=== PATIENT | female | born 1995 | race Caucasian/White ===

== ENCOUNTER 2018-09-08 15:15 | Emergency (ER) | payer OTHER ==
[2018-09-08] MEDS ORDERED: Ketorolac 60 MG/2 ML SDV IM ONE (15:30)
--- NOTE | 2018-09-08 15:38 | EDM.PDOC ---
ED HPI GENERAL MEDICAL PROBLEM - General Chief Complaint: Back Pain or Injury Stated Complaint: back pain Time Seen by Provider: 09/08/18 15:26 Source of Information: Reports: Patient, EMS History Limitations: Reports: No Limitations - History of Present Illness INITIAL COMMENTS - FREE TEXT/NARRATIVE: States that she had walked outside with a cat in her arms and she slipped on the slippery steps and fell down onto her buttocks and back. She was able to get up and go into house but had pain in back. She states that she heard a pop when she fell. Pain is in the lumbar and right side. SHe denies any radiation of the pain down legs or up into back. She states that the pain became worse and she was not able to get out of chair due to pain and called ambulance for transfer. Onset: Sudden Location: Reports: Back Quality: Reports: Sharp Improves with: Reports: Rest Worsens with: Reports: Movement Associated Symptoms: Reports: No Other Symptoms Back Pain Score (Numeric/FACES): 7 - Related Data Allergies Allergy/AdvReac Type Severity Reaction Status Date / Time blueberry Allergy Difficulty Verified 09/08/18 15:24 Breathing Penicillins Allergy Other Verified 09/08/18 15:24 Home Meds: Home Meds . [No Known Home Meds] 09/08/18 [History] Past Medical History - Past Health History Medical/Surgical History: Denies Medical/Surgical History Social & Family History - Tobacco Use Smoking Status *Q: Current Every Day Smoker Years of Tobacco use: 7 Packs/Tins Daily: 0.5 - Living Situation & Occupation Living situation: Reports: Single, with Significant Other Occupation: Employed ED ROS GENERAL - Review of Systems Review Of Systems: See Below Constitutional: Reports: No Symptoms HEENT: Reports: No Symptoms Respiratory: Reports: No Symptoms Cardiovascular: Reports: No Symptoms GI/Abdominal: Reports: No Symptoms : Reports: No Symptoms Musculoskeletal: Reports: Back Pain Skin: Reports: No Symptoms Neurological: Reports: No Symptoms ED EXAM,LOWER BACK PAIN/INJURY - Physical Exam Exam: See Below Exam Limited By: No Limitations General Appearance: Alert, WD/WN, Moderate Distress Ears: Normal External Exam, Normal Canal, Normal TMs Nose: Normal Inspection Throat/Mouth: Normal Inspection, Normal Oropharynx Head: Atraumatic, Normocephalic Neck: Normal Inspection, Supple, Non-Tender, Full Range of Motion Respiratory/Chest: No Respiratory Distress, Lungs Clear, Normal Breath Sounds Cardiovascular: Normal Peripheral Pulses, Regular Rate, Rhythm, No Edema GI/Abdominal: Normal Bowel Sounds, Soft, Non-Tender Back Exam: Normal Inspection (No bruising noted.), Paraspinal Tenderness (right lumbar area is very tender with palpation. Not tender down the spine itself.) Extremities: Normal Inspection, Non-Tender, No Pedal Edema, Normal Capillary Refill Neurological: Alert, Oriented x 3 Skin Exam: Warm, Dry, Intact, Normal Color. No: Ecchymosis Course - Vital Signs Last Recorded V/S: Last Vital Signs Temp 98.4 F 09/08/18 15:18 Pulse 65 09/08/18 15:18 Resp 18 09/08/18 15:18 BP 103/50 L 09/08/18 15:18 Pulse Ox 100 09/08/18 15:18 - Orders/Labs/Meds Orders: Active Orders 24 hr Category Date Time Status Lumbar Spine 2 or 3V [CR] Stat Exams 09/08/18 15:36 Taken Pelvis 1V or 2V [CR] Urgent Exams 09/08/18 15:36 Taken Labs: Laboratory Tests 09/08/18 Range/Units 15:50 HCG, Qual Negative Meds: Medications Discontinued Medications Generic Name Dose Route Start Last Admin Trade Name Hi PRN Reason Stop Dose Admin Ketorolac Tromethamine 60 mg 09/08/18 15:30 09/08/18 15:39 Toradol IM 09/08/18 15:31 60 mg ONETIME ONE Administration Orphenadrine Citrate 60 mg 09/08/18 15:34 09/08/18 15:38 Norflex IM 09/08/18 15:35 60 mg NOW ONE Administration - Re-Assessments/Exams Free Text/Narrative Re-Assessment/Exam: 09/08/18 1630 In to discuss normal xray. will discharge on flexeril and toradol for discomfort. Will consult PT. No work excuse for tomorrow. Encouraged to be up and moving as much as possible. Departure - Departure Time of Disposition: 16:46 Disposition: Home, Self-Care 01 Condition: Good Clinical Impression: Back muscle spasm Fall from slipping on ice Qualifiers: Encounter type: initial encounter Qualified Code(s): W00.9XXA - Unspecified fall due to ice and snow, initial encounter - Discharge Information *PRESCRIPTION DRUG MONITORING PROGRAM REVIEWED*: Not Applicable *COPY OF PRESCRIPTION DRUG MONITORING REPORT IN PATIENT HUA: Not Applicable Instructions: Muscle Cramps and Spasms, [id number], Back Injury Prevention, [id number] Forms: ED Department Discharge Additional Instructions: Flexeril 10 mg three times a day as needed for muscle spasms Toradol 10 mg three times a day as needed for pain heating pad for comfort as needed No work tomorrow Physical therapy- If they do not call you by 10 am call them for appt time. [phone] - Problem List & Annotations (1) Back muscle spasm SNOMED Code(s): 969475405 Code(s): M62.830 - MUSCLE SPASM OF BACK Status: Acute Priority: High (2) Fall from slipping on ice SNOMED Code(s): 039064464 Code(s): W00.9XXA - UNSPECIFIED FALL DUE TO ICE AND SNOW, INITIAL ENCOUNTER Status: Acute Priority: Low Qualifiers: Encounter type: initial encounter Qualified Code(s): W00.9XXA - Unspecified fall due to ice and snow, initial encounter - Problem List Review Problem List Initiated/Reviewed/Updated: Yes - My Orders Last 24 Hours: My Active Orders 09/08/18 15:36 Lumbar Spine 2 or 3V [CR] Stat Pelvis 1V or 2V [CR] Urgent - Assessment/Plan Last 24 Hours: My Active Orders 09/08/18 15:36 Lumbar Spine 2 or 3V [CR] Stat Pelvis 1V or 2V [CR] Urgent Plan: discharge with pain meds and PT consult.
== END 2018-09-08 17:06 | disposition home or self-care (01) ==
LOC: CC.ED 15:15
DX: M62.830 Muscle spasm of back (principal); Z91.018 Allergy to other foods; Z88.0 Allergy status to penicillin; F17.210 Nicotine dependence, cigarettes, uncomplicated; W00.9XXA Unspecified fall due to ice and snow, initial encounter
CPT/HCPCS: 36415; 72100; 72170; 84703; 96374; 96375; 99283; J1885; J2360; 96372

== ENCOUNTER 2019-01-18 07:17 | Emergency (ER) | payer OTHER ==
--- NOTE | 2019-01-18 10:05 | EDM.PDOC ---
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 Reports she had intercourse last evening. Reports following intercourse she began bleeding. Reports she did pass a clot. Does report that bleeding has slowed and is now more spotting. She denies any abdominal cramping. No other symptoms. Did have subchorionic hemorrhage noted on early OB US. Onset: Today Onset Date: 01/18/19 Onset Time: 00:00 Duration: Improving Location: Reports: Other (Vaginal bleeding) Associated Symptoms: Reports: No Other Symptoms - Related Data Allergies Allergy/AdvReac Type Severity Reaction Status Date / Time blueberry Allergy Difficulty Verified 01/18/19 07:28 Breathing Penicillins Allergy Other Verified 01/18/19 07:28 Home Meds: Home Meds PNV95/Ferrous Fumarate/FA [ Tablet] 1 tab PO DAILY 01/18/19 [History] Past Medical History - Past Health History Medical/Surgical History: Denies Medical/Surgical History Respiratory History: Reports: Asthma, Bronchitis, Recurrent Gastrointestinal History: Reports: GERD Genitourinary History: Reports: STD, UTI, Recurrent 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 History: Reports: Polycystic Ovaries, Neurological History: Reports: None Psychiatric History: Reports: Anxiety Endocrine/Metabolic History: Reports: Hypothyroidism - Infectious Disease History Infectious Disease History: Reports: Herpes - Past Surgical History Respiratory Surgical History: Reports: None GI Surgical History: Reports: None Female Surgical History: Reports: None Endocrine Surgical History: Reports: None Social & Family History - Family History Family Medical History: Noncontributory - Tobacco Use Smoking Status *Q: Former Smoker Used Tobacco, but Quit: Yes Month/Year Tobacco Last Used: december 2018 - Caffeine Use Caffeine Use: Reports: Soda - Recreational Drug Use Recreational Drug Use: No - Living Situation & Occupation Living situation: Reports: Single, with Significant Other Occupation: Employed ED ROS GENERAL - Review of Systems Review Of Systems: ROS reveals no pertinent complaints other than HPI. ED EXAM - Physical Exam Exam: See Below Exam Limited By: No Limitations General Appearance: Alert, WD/WN, No Apparent Distress Respiratory/Chest: No Respiratory Distress, Lungs Clear, Normal Breath Sounds, No Accessory Muscle Use, Chest Non-Tender Cardiovascular: Normal Peripheral Pulses, Regular Rate, Rhythm, No Edema, No Gallop, No JVD, No Murmur, No Rub GI/Abdominal Exam: Normal Bowel Sounds, Soft, Non-Tender, No Organomegaly, No Distention, No Abnormal Bruit, No Mass, Pelvis Stable Heart Tones: Present Heart Tones per Min: 148 Movement: Not Appreciated Back Exam: Normal Inspection, Full Range of Motion. No: CVA Tenderness (L), CVA Tenderness (R) Psychiatric: Normal Affect, Normal Mood Course - Vital Signs Last Recorded V/S: Last Vital Signs Temp 97.7 F 01/18/19 07:25 Pulse 98 01/18/19 07:25 Resp 16 01/18/19 07:25 BP 122/82 01/18/19 07:25 Pulse Ox 98 01/18/19 07:25 - Orders/Labs/Meds Orders: Active Orders 24 hr Category Date Time Status OB Ltd 1 or More Fetus [US] Stat Exams 01/18/19 07:[address] [facility] [REF] Stat Lab 01/18/19 07:43 Received Labs: Laboratory Tests 01/18/19 Range/Units 07:43 WBC 11.5 H (5.0-10.0) 10^3/uL RBC 3.84 L (4.00-5.50) 10^6/uL Hgb 12.2 (12.0-16.0) g/dL Hct 35.5 L (37.0-47.0) % MCV 92.4 (82.0-94.0) fL MCH 31.8 (27.0-32.0) pg MCHC 34.4 (33.0-38.0) g/dL RDW Coeff of Rosmery 12.2 (11.0-15.0) % Plt Count 215 (150-400) 10^3/uL Neut % (Auto) 64.1 (35-85) % Lymph % (Auto) 24.4 (10-55) % Merrick % (Auto) 9.6 (0-16) % Eos % (Auto) 1.7 (0-5) % Baso % (Auto) 0.2 (0-3) % Neut # (Auto) 7.37 H (1.80-7.00) 10^3/uL Lymph # (Auto) 2.81 (1.00-4.80) 10^3/uL Merrick # (Auto) 1.10 H (0.00-0.80) 10^3/uL Eos # (Auto) 0.20 (0.00-0.45) 10^3/uL Baso # (Auto) 0.02 10^3/uL - Re-Assessments/Exams Free Text/Narrative Re-Assessment/Exam: 01/18/19 10:01 US looks normal. No concerning findings. Discussed with patient. Discussed that bleeding likely from subchorionic hemorrhage, noted on previous US. Recommend pelvic rest. Departure - Departure Time of Disposition: 10:02 Disposition: Home, Self-Care 01 Condition: Good Clinical Impression: Subchorionic bleed Qualifiers: Fetus number: single or unspecified fetus Trimester: first trimester Qualified Code(s): O41.8X10 - Other specified disorders of amniotic fluid and membranes, first trimester, not applicable or unspecified - Discharge Information *PRESCRIPTION DRUG MONITORING PROGRAM REVIEWED*: Not Applicable *COPY OF PRESCRIPTION DRUG MONITORING REPORT IN PATIENT HUA: Not Applicable Instructions: Vaginal Bleeding During , First Trimester Referrals: Alisa Thomas NP [Primary Care Provider] - Forms: ED Department Discharge Additional Instructions: Everything looks excellent on US Pelvic Rest until f/u appointment Be sure to take antibiotic at pharmacy today for chlamydia previously diagnosed Push fluids the next few days Ensure you are taking vitamin daily Follow up if bleeding worsens or does not improve. May continue to have some spotting through the day today, but it should slow down and resolve. - My Orders Last 24 Hours: My Active Orders 01/18/19 07:30 OB Ltd 1 or More Fetus [US] Stat 01/18/19 07:43 [facility] [REF] Stat - Assessment/Plan Last 24 Hours: My Active Orders 01/18/19 07:30 OB Ltd 1 or More Fetus [US] Stat 01/18/19 07:43 [facility] [REF] Stat
== END 2019-01-18 10:10 | disposition home or self-care (01) ==
LOC: CC.ED 07:17
DX: O20.9 Hemorrhage in early pregnancy, unspecified (principal); Z3A.12 12 weeks gestation of pregnancy; Z88.0 Allergy status to penicillin; Z87.891 Personal history of nicotine dependence
CPT/HCPCS: 36415; 76815; 84702; 85025; 99284; 99284-25